=== PATIENT | female | born 1960 | race Caucasian/White ===

== ENCOUNTER 2017-04-05 12:25 | Emergency (ER) | payer OTHER ==
[~2017-04-05 12:25] MED LIST: ACETAMINOPHEN; ALBUTEROL17 GM INH; ALTACE; ASPIRIN; ASPIRIN PO; ATROVENT HFA12.9 G1 IH; AUGMENTIN PO; AZULFIDINE; CALCIUM 500 + D1 TAB PO; CALTRATE PLUS T1 TAB PO; CELEBREX; CELEBREX PO; CELEXA PO; CITALOPRAM HBR40 MG PO; CLARITIN10 MG PO; COREG3.125 MG PO; COUMADIN5 MG PO; FERROUS SULFATE; FERROUS SULFATE PO; FLEXERIL PO; FOLIC ACID PO; FOLIC ACID800 MCG PO; LISINOPRIL; LISINOPRIL PO; LISINOPRIL5 MG PO; LOVENOX SUBQ; MEDROL DOSEPAK4 MG PO; MEDROL PO; MOBIC PO; NAPROXEN PO; PERCOCET PO; PERCOCET5/325 PO; PLAQUENIL200 MG PO; PLAVIX; PREDNISONE PO; PREMARIN PO; PRESERVISION SO1 CAP PO; PROVENTIL INH0.5 ML HHN; SIMVASTATIN10 MG PO; ST. JOSEPH ASPI81 M2 PO; SULFASALAZINE500 M1 PO; TESSALON200 MG PO; ULTRAM PO; VESICARE5 MG PO; VICODIN 5/500 T1 TAB PO; ZANTAC PO; ZITHROMAX PO; ZOCOR10 MG PO
== END 2017-04-05 14:20 | disposition left against medical advice (07) ==
LOC: CED 12:25
DX: Z53.21 Procedure and treatment not carried out due to patient leaving prior to being seen by health care provider (principal)

== ENCOUNTER 2017-05-30 21:40 | Emergency (ER) | payer OTHER ==
[~2017-05-30] VITALS: Ht 170.2 cm; Wt 75.3 kg
--- NOTE | ~2017-05-30 | CR72 ---
[facility]. [facility] A Service of [facility] & [facility] / [facility] RADIOLOGY TEXT RESULTS PATIENT: SHAWN RUDOLPH LOCATION: SED : 64 UNIT #: [id number] AGE: [address]: Bob Ferraro DO SEX: F ORDER DR: [id number] [place] [id number] E MR#: [id number] Acc #: [id number] NAME: SHAWN RUDOLPH : 1960 SEX: F STUDY DATE/TIME: 05/30/2017 23:58 UNIT: SED ROOM: STUDY DESCRIPTION: CR Chest Single View Portable Attending Physician: Bob Ferraro Ordering Physician: Bob Ferraro Primary Care Physician: Speedy Holloway M.D. MEDICAL IMAGING REPORT This report is preliminary unless electronic signature is present. EXAM Portable chest, 05/30 at 23:58 hours INDICATION Chest pain, shortness of air since of this week. FINDINGS AP portable chest is compared with 11/22/2015. The heart remains enlarged status post sternotomy. The lungs are clear. No pneumothorax is seen. IMPRESSION Stable cardiomegaly. No active disease. Dictated by... Thang Ty Jr., M.D. THIS IS AN ELECTRONICALLY VERIFIED REPORT Thang Ty Jr., M.D. at 05/31/2017 9:21 PM KADEN/truong TD: 05/31/2017 13:34 JOB #: [id number] MEDICAL IMAGING REPORT Page 1 of 1
--- NOTE | ~2017-05-30 | EKG ---
PATIENT: SHAWN RUDOLPH UNIT #: [id number] Ventricular Rate: 98 BPM Atrial Rate: 98 BPM P-R Interval: 158 ms QRS Duration: 80 ms Q-T Interval: 346 ms QTC Calculation(Bezet): 441 ms P Points: 17 degrees Calculated R Points: 85 degrees Calculated T Points: 39 degrees Diagnosis Line: Normal sinus rhythm Diagnosis Line: Nonspecific ST abnormality Diagnosis Line: Abnormal ECG Diagnosis Line: When compared with ECG of 22-NOV-2015 11:19, Diagnosis Line: Vent. rate has increased BY 36 BPM Diagnosis Line: ST now depressed in Anterior leads Diagnosis Line: Confirmed by ELVIS OCONNOR MD ([id number]) on Diagnosis Line: 06/04/2017 3:51:46 PM INTERPRETING MD: HEIDY
[2017-05-30] MEDS ORDERED: WARFARIN SODIU7.5 M1 PO ×2 (21:58→21:59)
[2017-05-30] MEDS ORDERED: ASPIRIN81 MG PO (21:59)
[2017-05-30] MEDS ORDERED: CELEXA20 MG (22:00)
[2017-05-30] MEDS ORDERED: VITAMIN D1000 UNI2 PO (22:01)
[2017-05-30 22:11] LABS: BASOPHIL% 0.3 % (0-2.5); EOSINOPHIL# 0.2 X10e3 (0-0.7); EOSINOPHIL% 1.9 % (0.0-7.0); HEMATOCRIT 40.8 % (35.0-45.0); HEMOGLOBIN 13.3 gm/dL (12.0-16.0); LYMPHOCYTE# 2.1 X10e3 (1.0-3.5); LYMPHOCYTE% 17.9 % (17.0-45.0); MEAN CELL VOLUME 88.5 FL (83-96); MEAN CORPUSCULAR HEMOGLOBIN 28.8 PG (28-34); MEAN CORPUSCULAR HGB CONC 32.6 g/dL (30-36); MEAN PLATELET VOLUME 10.3 FL (6.5-11.5); MONOCYTE# 0.6 X10e3 (0-1.0); MONOCYTE% 5.2 % (3.0-12.0); NEUTROPHIL# 8.9 X10e3 (1.5-7.1); NEUTROPHIL% 74.7 % (40-75); PLATELET COUNT 227 X10e3 (140-420); RED BLOOD COUNT 4.61 X10e (3.90-5.30); RED CELL DISTRIBUTION WIDTH 15.2 % (11.0-15.5)
[2017-05-30 22:12] LABS: DIFF IND NO
[2017-05-30 22:13] LABS: INR 3.6; PROTHROMBIN TIME (PATIENT) 41.2 SECONDS (9.5-12.4)
[2017-05-30 22:18] LABS: POC - CKMB 1.3 ng/mL (0.0-7.9)
[2017-05-30 22:19] LABS: POC - TROPONIN <0.05 ng/mL (<=0.05)
[2017-05-30 22:20] LABS: PARTIAL THROMBOPLASTIN TIME 51.7 SECONDS (25.6-38.1)
[2017-05-30 22:22] LABS: ALBUMIN SERUM 3.9 g/dL (3.5-5.0); BILIRUBIN, DIRECT 0.1 mg/dL (0.0-0.2); BILIRUBIN,INDIRECT 0.5 mg/dL (0.0-0.9); BILIRUBIN,TOTAL 0.6 mg/dL (0.2-2.0); CALCIUM SERUM 8.7 mg/dL (8.4-10.2); CREATININE SERUM 1.6 mg/dL (0.6-1.4); GLOM FILT RATE Estimated 36.2 mL/min (>60); POTASSIUM 4.1 mmol/L (3.5-5.1); PROTEIN TOTAL SERUM 7.4 g/dL (6.0-8.3)
[2017-05-30 23:52] LABS: POC - CKMB <1.0 ng/mL (0.0-7.9); POC - TROPONIN <0.05 ng/mL (<=0.05)
[2017-05-31] MEDS ORDERED: PREDNISONE10 M1 (01:50)
[2017-05-31] MEDS ORDERED: ALBUTEROL MININEB (01:50)
== END 2017-05-31 01:47 | disposition home or self-care (01) ==
LOC: SED 21:40
PROVIDERS: Emergency Medicine
DX: J44.1 Chronic obstructive pulmonary disease with (acute) exacerbation (principal); F41.9 Anxiety disorder, unspecified; I11.9 Hypertensive heart disease without heart failure; Z90.49 Acquired absence of other specified parts of digestive tract; Z90.710 Acquired absence of both cervix and uterus; F17.200 Nicotine dependence, unspecified, uncomplicated; Z79.01 Long term (current) use of anticoagulants; Z88.5 Allergy status to narcotic agent; Z88.8 Allergy status to other drugs, medicaments and biological substances; Z79.82 Long term (current) use of aspirin; Z79.899 Other long term (current) drug therapy
CPT/HCPCS: 36415; 71010; 80048; 80076; 82553; 83690; 83880; 84484; 85025; 85379; 85610; 85730; 93005; 94640; 96374; 99285; J2930